=== PATIENT | male | born 1980 | race Caucasian/White ===

== ENCOUNTER 2017-04-21 17:15 | Emergency (ER) | payer BC ==
[2017-04-21 17:40] VITALS: BP 147/71
[2017-04-21] MEDS ORDERED: Amoxicillin/Clavulanate TAB* 500 MG PO ONE (17:57)
--- NOTE | 2017-04-21 18:07 | UC ---
Respiratory Complaint HPI - HPI Summary HPI Summary: Patient presents with complaints of head congestion, nasal stuffiness stating that he cannot breath through his nose at night. He also reports that he had a sore throat that has resolved. He also states that he had a persistent cough that is causing headaches. He states that the headaches are similar to those he has had in the past. He denies blurred vision, numbness, tingling, or weakness associated with the headaches. He states that he has been exposed to co-workers who had same symptoms and had to get antibiotic before they got better. Patient denies fever, chills, nausea, vomiting, or diarrhea. He states he is eating and drinking well. He states he took advil for the sore throat and is got better, and that is also helps his headache. - History of Current Complaint Chief Complaint: UCRespiratory Stated Complaint: COUGH,SORE THROAT Time Seen by Provider: 04/21/17 17:50 Hx Obtained From: Patient Onset/Duration: Gradual Onset, Lasting Days Timing: Intermittent Episodes Severity Initially: Moderate Severity Currently: None Character: Cough: Nonproductive Associated Signs And Symptoms: Positive: URI, Nasal Congestion, Sinus Discomfort - Allergies/Home Medications Allergies/Adverse Reactions: Allergies Allergy/AdvReac Type Severity Reaction Status Date / Time No Known Allergies Allergy Verified 04/21/17 17:39 Home Medications: Home Medications [id number] [Excedrin Extra Strength] 1 tab PO PRN 04/21/17 [ History] PMH/Surg Hx/FS Hx/Imm Hx Previously Healthy: Yes - Surgical History Surgical History: Yes Surgery Procedure, Year, and Place: APPENDECTOMY - Family History Known Family History: Positive: Unknown - Social History Alcohol Use: None Substance Use Type: None Smoking Status (MU): Former Smoker Review of Systems ENT: Sore Throat, Nasal Discharge, Sinus Congestion, Sinus Pain/Tenderness Respiratory: Cough Neurological: Headache All Other Systems Reviewed And Are Negative: Yes Physical Exam Triage Information Reviewed: Yes Appearance: Well-Appearing Vital Signs: Initial Vital Signs Temp 97.7 F 04/21/17 17:36 Pulse 78 04/21/17 17:36 Resp 16 04/21/17 17:36 BP 147/71 04/21/17 17:36 Pulse Ox 100 04/21/17 17:36 Vital Signs Reviewed: Yes Eye Exam: Normal ENT: Positive: Pharyngeal erythema, Nasal congestion, TM dull Neck exam: Normal Respiratory: Positive: Rhonchi Cardiovascular Exam: Normal UC Diagnostic Evaluation - Laboratory O2 Sat by Pulse Oximetry: 100 Respiratory Course/Dx - Course Course Of Treatment: Patient presents with two weeks of persistent respiratory symptoms which currently include nasal plugging and inflammed turbinates, he also has persistent cough that could be a result of a hyper-responsive ariway, however I did not appeciate any wheezing.I feel given the fact that his symptoms are persistent he warrents treatment with antibiotics. If for any reason his symptoms do not improve as anticipated he will need to be re- evaluted by his PCP. At the time of discharge he had a nontoxic appearance, normal vital signs and was aferbrile. - Differential Dx/Diagnosis Differential Diagnosis/HQI/PQRI: Other - URI Provider Diagnoses: URI Discharge - Discharge Plan Condition: Stable Disposition: HOME Prescriptions: Amoxicillin/Clavulanate TAB* [Augmentin TAB 500 mg*] 500 mg PO BID #20 tab Patient Education Materials: Upper Respiratory Infection (ED) Referrals: No Primary Care Phys,NOPCP [Primary Care Provider] -
== END 2017-04-21 18:07 | disposition home or self-care (01) ==
LOC: UCEAST 17:15
DX: J06.9 Acute upper respiratory infection, unspecified (principal); Z87.891 Personal history of nicotine dependence; Z90.49 Acquired absence of other specified parts of digestive tract
CPT/HCPCS: 99212; A9270-GY; G0463